=== PATIENT | male | born 1960 | race American Indian/Alaskan Native ===

== ENCOUNTER 2021-10-01 03:29 | Emergency (ER) | payer SELFPAY ==
[2021-10-01] MEDS ORDERED: SODIUM CHLORIDE 0.9% 1000 ML 1,000 ML ONE (04:26)
[2021-10-01] MEDS ORDERED: SODIUM CHLORIDE 0.9% 1000 ML 1,000 ML IV ONE (04:28)
--- NOTE | 2021-10-01 04:41 | Emergency Department Report ---
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 Patient reported feeling dizzy then the next thing she r emembers was a fall. The same symptoms happened on Wednesday about 3 days ago with complete resolution. No fever or chills reported. No other modifying or associated factors reported. - Related Data Allergies/Adverse Reactions: Allergies No Known Allergies Allergy (Unverified 10/01/21 04:14) ED Review of Systems ROS: Stated complaint: LOW BP/BLOOD SUGAR Other details as noted in HPI Comment: All other systems reviewed and negative Cardiovascular: syncope. denies: chest pain, palpitations ED Past Medical Hx - Past Medical History Previous Medical History?: Yes Hx Hypertension: Yes Hx Diabetes: Yes - Surgical History Past Surgical History?: No - Social History Smoking Status: Never Smoker ED Physical Exam - General Limitations: No Limitations General appearance: alert, in no apparent distress - Head Head exam: Present: normal inspection - Eye Eye exam: Present: normal appearance Pupils: Present: normal accommodation - ENT ENT exam: Present: normal exam, normal orophraynx - Neck Neck exam: Present: normal inspection, full ROM. Absent: tenderness - Respiratory Respiratory exam: Present: normal lung sounds bilaterally. Absent: respiratory distress, accessory muscle use - Cardiovascular Cardiovascular Exam: Present: regular rate, normal rhythm, normal heart sounds - GI/Abdominal GI/Abdominal exam: Present: soft, normal bowel sounds. Absent: distended, tenderness - Extremities Exam Extremities exam: Present: normal inspection, normal capillary refill. Absent: pedal edema - Back Exam Back exam: Present: normal inspection. Absent: tenderness - Neurological Exam Neurological exam: Present: alert, oriented X3 - Psychiatric Psychiatric exam: Present: normal affect, normal mood - Skin Skin exam: Present: warm, normal color ED Course Vital Signs 10/01/21 10/01/21 10/01/21 03:58 04:00 04:11 Temperature 98.3 F Pulse Rate 64 82 79 Respiratory 16 17 Rate Blood Pressure 104/67 103/67 103/67 Blood Pressure [Left] O2 Sat by Pulse 96 97 Oximetry 10/01/21 10/01/21 04:16 05:45 Temperature Pulse Rate 76 65 Respiratory 17 Rate Blood Pressure Blood Pressure 98/62 105/72 [Left] O2 Sat by Pulse 97 Oximetry ED Medical Decision Making - Lab Data Result diagrams: 10/01/21 04:57 10/01/21 04:57 - EKG Data -: EKG Interpreted by Me EKG shows normal: sinus rhythm Rate: normal - EKG Data 10/01/21 04:39 Noted with normal sinus rhythm at a rate of 82 bpm, with normal QT C in this normal ECG. - Medical Decision Making Here with palpitation associated with syncope episode while at work but noted with hypotension --which likely cause the issues-- this is likely vasovagal related to hypotension--but differential could be and not limited to seizure, symptomatic anemia, myocardial infarction, pulmonary embolism, anxiety, CVA especially posterior stroke or thyroid abnormality--in order to rule those out I will go ahead and order routine cardiopulmonary work-up that include troponin, EKG, chest x-ray, BNP, CKMB, and CBC, CMP, Urinalysis and thyroid panel for any correctable infectious process or electrolyte abnormality as a cause. Will also order CT brain for any intracranial abnormality as mentioned above. In the meantime will give ivf ns 1L bolus for hydration as most are dehydrated in the hot weather anyway. Pt noticed to be hypotensive and currently taken Amlodipine-- with noted ortostatic vitals-- will encourage holding the antihypertensive until follow up with his primary doctor as this could be the culprit-- Critical care attestation.: If time is entered above; I have spent that time in minutes in the direct care of this critically ill patient, excluding procedure time. ED Disposition Clinical Impression: Syncope and collapse, Orthostatic hypotension Disposition: 01 HOME / SELF CARE / HOMELESS Is pt being admited?: No Does the pt Need Aspirin: No Condition: Stable Instructions: Syncope (ED), Near-Syncope, [id number], Orthostatic Hypotension, Syncope, [id number] Additional Instructions: Please hold your antihypertensive amlodipine until follow-up with your primary doctor in the next 3 to 5 days for reevaluation Increase your daily fluid to help your hydration Please do not hesitate to call or return to emergency room if your symptoms persist or worsen Referrals: IVETTE MAGANA MD [Referring] - 3-5 Days Time of Disposition: 05:48
[2021-10-01 05:19] LABS: Basophils % (Auto) 0.3 % (0.0-1.8); Eosinophils % (Auto) 0.1 % (0.0-4.3); Hematocrit 46.4 % (35.5-45.6); Lymphocytes % (Auto) 22.7 % (13.4-35.0); Mean Corpuscular HGB Conc 32 % (32-34); Mean Corpuscular Volume 83 fl (84-94); Monocytes # (Auto) 0.5 K/mm3 (0.0-0.8); Monocytes % (Auto) 10.5 % (0.0-7.3); Platelet Count 148 K/mm3 (140-440); Red Blood Count 5.56 M/mm3 (3.65-5.03)
--- NOTE | 2021-10-01 05:27 | XRay Report ---
CHEST 1 VIEW INDICATION / CLINICAL INFORMATION: Syncope. COMPARISON: None available. FINDINGS: SUPPORT DEVICES: None. HEART / MEDIASTINUM: Heart size is within normal limits. Mediastinal contour demonstrates no signific ant abnormality. LUNGS / PLEURA: Lungs are clear for degree of inspiration and technique utilized. BONES: No significant osseous abnormality. ADDITIONAL FINDINGS: No significant additional findings. IMPRESSION: 1. No active cardiopulmonary disease. Signer Name: Vel Das II, MD Signed: 10/01/2021 5:22 AM Workstation Name: [id number]
[2021-10-01 05:33] LABS: INR 0.92 (0.87-1.13)
[2021-10-01 05:42] LABS: Alanine Aminotransferase 41 units/L (7-56); Albumin 4.3 g/dL (3.9-5); BUN/Creatinine Ratio 10; Blood Urea Nitrogen 19 mg/dL (9-20); Calcium 8.6 mg/dL (8.4-10.2); Hemolysis Index 4
[2021-10-01 07:05] VITALS: BP 122/81
--- NOTE | 2021-10-01 09:06 | Electrocardiograph Report ---
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
== END 2021-10-01 07:05 | disposition home or self-care (01) ==
LOC: ED 03:29
DX: I95.1 Orthostatic hypotension (principal); I10 Essential (primary) hypertension; E11.9 Type 2 diabetes mellitus without complications; Z79.899 Other long term (current) drug therapy
CPT/HCPCS: 36415; 71045; 80053; 82962; 84484; 85025; 85610; 93005; 96360; 99284; J7030